=== PATIENT | female | born 1995 | race Caucasian/White ===

== ENCOUNTER 2018-09-02 17:10 | Outpatient (CLI) | END 2018-09-02 18:30 | disposition home or self-care (01) ==

== ENCOUNTER 2018-11-20 14:35 | Inpatient (IN) | payer OTHER ==
[~2018-11-20] VITALS: Ht 157.5 cm; Wt 82.0 kg
[2018-11-20] MEDS ORDERED: LACTATED RINGER'S 1,000 ML IV SCH ×2 (16:32→22:53)
[2018-11-20 16:34] VITALS: Ht 157.5 cm; Wt 82.0 kg
[2018-11-20 16:35] VITALS: BP 106/63; PULSE 72
--- NOTE | 2018-11-20 16:35 | PREAC ---
Date/Time of Note Date/Time of Note DATE: 11/20/18 TIME: 16:34 Anesthesia Eval and Record Evaluation Time Pre-Procedure Interview DATE: 11/20/18 TIME: 16:34 Age 23 Sex female NPO: 8 hrs Preoperative diagnosis iup at 38 weeks Planned procedure repeat c section Past Medical History Past Medical History: Includes GI: Obesity Surgery & Anesthesia Issues No known issue Meds Anticoagulation: No Beta Matt within 24 hr: No Reason Beta Matt not given: Pt. not on B-Matt No Active Prescriptions or Reported Meds Meds reviewed: Yes Allergies Coded Allergies: No Known Allergy (Unverified , 09/02/18) Allergies Reviewed: Yes Labs/Studies Labs Reviewed: Reviewed by anesthesiologist test: Positive Pre-procedure Exam Airway: Adequate mouth opening, Adequate thyromental dist Mallampati: Mallampati II Teeth: Normal Lung: Normal Heart: Normal ASA Physical Status ASA physical status: 2 Emergency: None Planned Anesthetic Neuraxial: Spinal Planned Pain Management Sub-arachniod narcotics, Parenteral pain med Pre-operative Attestations Prior to commencing anesthesia and surgery, the patient was re-evaluated, there was verification of: *The patient's identity *The results of appropriate recent lab work and preoperative vital signs *The above evaluation not changing prior to induction *Anesthetic plan, risk benefits, alternative and complications discussed with patient/family; questions answered; patient/family understands, accepts and wishes to proceed. WERO DEY Nov 20, 2018 16:35
[2018-11-20] MEDS ORDERED: METHYLERGONOVINE 0.2 MG INJ IM PRN ×2 (17:00→23:00)
[2018-11-20] MEDS ORDERED: OXYTOCIN 30 UNITS/LR 500 ML IV PRN ×2 (17:00→23:00)
[2018-11-20] MEDS ORDERED: CEFAZOLIN 2 GM/50 ML (PMX) 50 ML IVPB SCH (17:00)
[2018-11-20] MEDS ORDERED: OXYTOCIN 30 UNITS/LR 500 ML IV SCH ×2 (17:00→22:53)
[2018-11-20] MEDS ORDERED: CARBOPROST 250 MCG INJ IM PRN ×2 (17:00→23:00)
[2018-11-20] MEDS ORDERED: MISOPROSTOL 200 MCG TAB PR PRN ×2 (17:00→23:00)
--- NOTE | 2018-11-20 18:17 | HP ---
Date/Time of Note Date/Time of Note DATE: 11/20/18 TIME: 18:13 OB - History Hx of Present Chief Complaint: scheduled Estimated Due Date: Nov 26, 2018 : 2 Para: 1 Spontaneous : 0 Therapeutic : 0 Care: Good Care Ultrasounds: Normal mid trimester US Obstetrical Complications: None Medical Complications: None Past Family/Social History * Past Medical, Surgical, Family and Obstetric Histories reviewed from chart. GBS Status: Negative OB Admission Exam Vital Signs Vital Signs Vital Signs Date Temp Pulse Resp B/P (MAP) Pulse Ox O2 O2 Flow FiO2 Time Delivery Rate 11/20/18 98.6 72 106/63 Room Air 16:35 (77) Physical Exam HEENT: WNL Heart: Rhythm Normal Lungs: Clear, Equal Abdomen: WNL Extremities: Normal Reflexes: Normal Heart Rate: 120's Accelerations: Accelerations Present Decelerations: No Decelerations Varibility: Moderate Last 72 hours Lab Results CBC & BMP 11/20/18 16:25 OB Assessment/Plan Reason for admission: section Plan: Section NADINE VILLEGAS MD Nov 20, 2018 18:17
[2018-11-20] MEDS ORDERED: PHENYLephrine (100 MCG/ML) 5ML SYG ONE (18:28)
[2018-11-20] MEDS ORDERED: DEXAMETHASONE 4 MG/ML 1 ML INJ ONE (18:40)
[2018-11-20] MEDS ORDERED: ONDANSETRON 4 MG INJ ONE (18:40)
[2018-11-20] MEDS ORDERED: OXYTOCIN 30 UNITS/LR 500 ML IV ONE ×2 (18:43→19:31)
[2018-11-20] MEDS ORDERED: HYDROmorphONE 0.5 MG/0.5 ML SYG IV PRN ×2 (19:30)
[2018-11-20] MEDS ORDERED: KETOROLAC 30 MG INJ IV PRN (19:30)
[2018-11-20] MEDS ORDERED: ONDANSETRON 4 MG INJ IV PRN (19:30)
[2018-11-20] MEDS ORDERED: NALOXONE (0.4 MG/ML) INJ IV PRN (19:30)
[2018-11-20] MEDS ORDERED: DIPHENHYDRAMINE 50 MG INJ IV PRN (19:30)
[2018-11-20] MEDS ORDERED: ZOLPIDEM 5 MG TAB PO PRN (19:30)
[2018-11-20] MEDS ORDERED: morphine SULFATE/PF (10 MG/10 ML) INJ ONE (19:30)
--- NOTE | 2018-11-20 20:01 | OPR ---
Operative Report Planned Procedure Procedure date Nov 20, 2018 Procedure(s) Repeat low transverse Performed by Rodri Villegas MD [employer] Supervisor: SONY VARGAS MD Anesthesiologist: WERO DEY Pre-procedure diagnosis Term with previous [id number] Anesthesia Type: [id number] spinal Post-Procedure Post-procedure diagnosis Same Findings Live Baby, Apgars 9 and 9 Estimated Blood Loss: other (600 ml) Specimen(s) Placenta Grafts/Implant(s) none Complication(s) none Pt Condition post procedure: stable Disposition: PACU Procedure Description After spinal anesthesia had been dosed and tested, the patient was placed supine on the Operating Room table and prepped and draped in the usual sterile fashion for a section. A Pfannenstiel incision was made through the abdomen and carried down to the level of the fascia. The fascia was incised transversely and then the rectus muscle was dissected off the fascia and split bluntly in the midline. The peritoneum was the entered bluntly. The bladder flap was created and then a low segment transverse incision was made with a knife on the uterus until the amniotic fluid was encountered. The incision was widened with bandage scissors. A hand was inserted elevating the vertex and then the head delivered with assistance of fundal pressure.. The nares and oropharynx were bulb suctioned, and the remainder of the was delivered out of the maternal abdomen. . The cord was doubly clamped and cut, and the handed off to the awaiting resuscitation team who was present for delivery. The placenta was then manually extracted and the interior uterus was cleaned with a dry lap sponge. The uterus was exteriorized, and the incision of the uterus closed with a running interlocking stitch of Monocryl suture. The uterus was replaced in the maternal abdomen. The abdomen was cleared of clots. The fascia was closed with a running suture of #1 Vicryl suture meeting in the midline. The subcutaneous tissue was made hemostatic with Bovie cautery, and the skin approximated using shruthi. The patient tolerated the procedure well. All sponge and instrument counts were correct. She was taken to the recovery room in stable condition. RODRI VILLEGAS MD Nov 20, 2018 20:01
--- NOTE | 2018-11-20 20:06 | PAC ---
Date/Time of Note Date/Time of Note DATE: 11/20/18 TIME: 20:05 Post-Anesthesia Notes Post-Anesthesia Note Last documented vital signs Vital Signs Date Temp Pulse Resp B/P (MAP) Pulse Ox O2 O2 Flow FiO2 Time Delivery Rate 11/20/18 98.6 72 106/63 Room Air 1806 (77) Activity: WNL Respiratory function: WNL Cardiovascular function: WNL Mental status: Baseline Pain reasonably controlled: Yes Hydration appropriate: Yes Nausea/Vomiting absent: Yes WERO DEY Nov 20, 2018 20:06
[2018-11-20 22:30] VITALS: BP 103/55; PULSE 79; RESP 18; RESP 19
[2018-11-20] MEDS ORDERED: LANOLIN HPA 1 PKT TOP PRN (23:00)
[2018-11-21 00:30] VITALS: BP 98/55; PULSE 72; RESP 18
[2018-11-21 04:30] VITALS: BP 101/56; PULSE 76; RESP 18
[2018-11-21 08:00] VITALS: BP 100/52; PULSE 74; RESP 52
[2018-11-21] MEDS: SENNA/DOCUSATE NA (8.6MG/50MG) TAB PO SCH ×2 (09:00→22:27)
[2018-11-21 12:00] VITALS: BP 82/49; PULSE 88; RESP 16
[2018-11-21] MEDS: LACTATED RINGER'S 1,000 ML IV SCH ×3 (12:14→23:30)
[2018-11-21 16:00] VITALS: BP 88/48; PULSE 84; RESP 18
[2018-11-21 17:27] VITALS: BP 95/53; PULSE 72; RESP 16
--- NOTE | 2018-11-21 18:21 | QN ---
Documentation Comment No complaint Afebrille VSS Abdomen soft POD #1 Stable Ambulate Advance diet. NADINE VILLEGAS MD Nov 21, 2018 18:21
[2018-11-21] MEDS ORDERED: OXYCODONE/ACETAMINOPHEN (5/325) TAB PO PRN ×2 (18:24)
[2018-11-21] MEDS: IBUPROFEN 800 MG TAB PO SCH (22:27)
[2018-11-22 04:49] VITALS: BP 96/53; PULSE 65; RESP 18
[2018-11-22] MEDS: IBUPROFEN 800 MG TAB PO SCH ×3 (05:43→22:06)
[2018-11-22] MEDS: LACTATED RINGER'S 1,000 ML IV SCH ×3 (07:30→23:30)
[2018-11-22 08:16] VITALS: BP 90/51; PULSE 66; RESP 18
[2018-11-22] MEDS: SENNA/DOCUSATE NA (8.6MG/50MG) TAB PO SCH ×2 (09:24→22:06)
[2018-11-22] MEDS ORDERED: INFLUENZA VIRUS VACCINE 0.5 ML (DISPENSING) IM* ONE (10:00)
--- NOTE | 2018-11-22 12:18 | OPPN ---
Date/Time of Note Date/Time of Note DATE: 11/22/18 TIME: 12:17 Anesthesia Follow up Anesthesia Follow up Last documented vital signs Vital Signs Date Temp Pulse Resp B/P (MAP) Pulse Ox O2 O2 Flow FiO2 Time Delivery Rate 11/22/18 98.4 66 18 90/51 (64) Room Air 10:16 11/21/18 96 16:00 Respiratory function: WNL Cardiovascular function: WNL Comments no complications from intrathecal morphine analgesia. satisfactory pain management. WERO DEY Nov 22, 2018 12:18
[2018-11-22 16:03] VITALS: BP 95/55; PULSE 73; RESP 18
[2018-11-22 19:45] VITALS: BP 95/54; PULSE 70; RESP 18
--- NOTE | 2018-11-22 20:46 | QN ---
Documentation Comment No complaint Afebrile VSS' Abdomen soft Stable Continue present care. NADINE VILLEGAS MD Nov 22, 2018 20:46
[2018-11-23 03:32] VITALS: BP 100/58; PULSE 68; RESP 18
[2018-11-23] MEDS: IBUPROFEN 800 MG TAB PO SCH ×2 (06:12→13:57)
[2018-11-23] MEDS: LACTATED RINGER'S 1,000 ML IV SCH ×2 (07:30→15:30)
[2018-11-23 08:00] VITALS: BP 106/53; PULSE 69; RESP 18
[2018-11-23] MEDS ORDERED: DIPHTH/TET/ACEL PERTUSS (ADULT) 0.5 ML VIAL IM* ONE (09:00)
[2018-11-23] MEDS: SENNA/DOCUSATE NA (8.6MG/50MG) TAB PO SCH (09:07)
[2018-11-23 16:00] VITALS: BP 101/64; PULSE 90; RESP 18
--- NOTE | 2018-11-23 18:30 | DS ---
Date/Time of Note Date/Time of Note DATE: 11/23/18 TIME: 18:29 Obstetrical Discharge Record Final Diagnosis Final Diagnosis: Term delivered Section Section: Repeat Condition on Discharge Physical Assessment Voiding: Yes Bowel Movement: Yes Breast: Soft, non-tender, Filling Fundus: Firm Abdomen and Incision: Incision intact Calf Tenderness: No Patient Condition: Stable NADINE VILLEGAS MD Nov 23, 2018 18:30
[2018-11-23 19:40] VITALS: BP 108/56; PULSE 88; RESP 16
== END 2018-11-23 19:30 | disposition home health service (06) | DRG 788 ==
LOC: L-D 14:35 → MS1 22:23 → PP1 11-21 17:00
PROVIDERS: ADMIT Obstetrics & Gynecology; ATTEND Obstetrics & Gynecology
PROC: 3E033VJ Introduction of Other Hormone into Peripheral Vein, Percutaneous Approach (ICD-10-PCS; 2018-11-20)
PROC: 10D00Z1 Extraction of Products of Conception, Low, Open Approach (ICD-10-PCS; principal; 2018-11-20 17:00)
DX: O65.5 Obstructed labor due to abnormality of maternal pelvic organs (principal); O34.211 Maternal care for low transverse scar from previous cesarean delivery; Z3A.37 37 weeks gestation of pregnancy; Z37.0 Single live birth
CPT/HCPCS: 85025; 85610; 85730; 86592; 86850; 86900; 86901; 87340; 90686; 90715; 99464; J0690; J1100; J1200; J1885; J2274; J2370; J2405; J2590; J7120